=== PATIENT | female | born 1970 | race Hispanic/Latino ===

== ENCOUNTER → 2021-10-20 | Outpatient (CLI) | payer OTHER | END | disposition home or self-care (01) | LOC: RAH 12:01 | PROVIDERS: ATTEND Family Medicine | DX: M54.12 Radiculopathy, cervical region (principal) | CPT/HCPCS: 72040 ==

== ENCOUNTER → 2021-11-16 | Outpatient (CLI) | payer OTHER | END | disposition home or self-care (01) | LOC: ICE 14:20 | PROVIDERS: ATTEND Hospitalist | DX: Z20.822 Contact with and (suspected) exposure to COVID-19 (principal) | CPT/HCPCS: 87635; C9803 ==

== ENCOUNTER → 2022-04-26 | Outpatient (CLI) | payer OTHER ==
[~2022-04-26] MED LIST: REGADENOSON 0.4 MG/5 ML PF SYG IVP SCH
== END | disposition home or self-care (01) ==
LOC: RAH 10:24
PROVIDERS: ATTEND Family Medicine
DX: R06.00 Dyspnea, unspecified (principal); Z73.89 Other problems related to life management difficulty
CPT/HCPCS: 78452; 96374; 93017; J2785; A9500 ×2

== ENCOUNTER → 2022-06-25 | Outpatient (CLI) | payer SELFPAY | END | disposition home or self-care (01) | LOC: RAH 07:37 | PROVIDERS: ATTEND Family Medicine | DX: Z13.6 Encounter for screening for cardiovascular disorders (principal) | CPT/HCPCS: 75571 ==

== ENCOUNTER 2022-08-18 23:45 | Emergency (ER) | payer OTHER ==
[~2022-08-18] VITALS: Ht 147.3 cm; Wt 83.0 kg
[2022-08-19 00:47] LABS: BASOPHILS % (AUTO) 0.3 % (0.0-5.0); EOSINOPHILS % (AUTO) 0.2 % (0.0-8.0); HEMATOCRIT 40.4 % (36-48); LYMPHOCYTES % (AUTO) 11.9 % (21.0-51.0); MEAN CORPUSCULAR HEMOGLOBIN 29.7 pg (27.0-33.0); MEAN CORPUSCULAR HGB CONC 33.4 g/dL (32.0-36.0); MEAN CORPUSCULAR VOLUME 88.8 fL (79-99); MONOCYTES % (AUTO) 10.3 % (3.0-13.0); NEUTROPHILS % (AUTO) 76.7 % (40.0-77.0); PLATELET COUNT (AUTO) 262 K/uL (130-400); RED BLOOD CELL COUNT(AUTO) 4.55 MIL/uL (4.00-5.50); RED CELL DISTRIBUTION WIDTH 11.8 % (11.0-15.5); WHITE BLOOD COUNT (AUTO) 6.2 K/uL (4.8-10.8)
[2022-08-19 00:58] LABS: CREATININE 0.6 mg/dL (0.5-1.5); POTASSIUM 3.9 mmol/L (3.5-5.1)
[2022-08-19] MEDS ORDERED: ONDANSETRON 4MG INJ IVP ONE (01:00)
[2022-08-19] MEDS ORDERED: KETOROLAC 15MG/ML VIAL (15MG/ML) IV ONE (01:00)
[2022-08-19 01:02] LABS: ALBUMIN 3.6 g/dL (3.5-5.0); TOTAL PROTEIN, SERUM 7.2 g/dL (6.0-8.3)
[2022-08-19] MEDS ORDERED: SUCRALFATE 1 GM TABLET PO SCH (02:00)
[2022-08-19] MEDS ORDERED: ACETAMINOPHEN 500 MG TABLET PO ONE (02:00)
[2022-08-19 02:06] LABS: APPEARANCE,URINE CLEAR (CLEAR); BILIRUBIN,URINE NEGATIVE (NEGATIVE); COLOR,URINE LIGHT-YELLOW (YELLOW); GLUCOSE, URINE (UA) NEGATIVE (NEGATIVE); KETONES,URINE 5 mg/dL (NEGATIVE); LEUKOCYTE ESTERASE ,URINE NEGATIVE Leu/uL (NEGATIVE); NITRATE,URINE NEGATIVE (NEGATIVE); OCCULT BLOOD,URINE NEGATIVE (NEGATIVE); PH,URINE 7.5 (5.0-8.0); PROTEIN,URINE 10 mg/dL (NEGATIVE)
[2022-08-19 02:15] LABS: MUCUS,URINE RARE LPF (None Seen); SQUAMOUS EPITHELIAL CELL,UR RARE /HPF (0-2); WBC,URINE 0-1 /HPF (0-1)
[2022-08-19] MEDS ORDERED: ACET-66 PO (02:40)
[2022-08-19] MEDS ORDERED: ONDA4TAB10 PO (02:40)
[2022-08-19 02:55] VITALS: BP 122/71
== END 2022-08-19 02:59 | disposition home or self-care (01) ==
LOC: EDH 23:45
DX: K52.9 Noninfective gastroenteritis and colitis, unspecified (principal); Z88.5 Allergy status to narcotic agent
CPT/HCPCS: 99284; 80053; 83690; 85025; 81001; 36415; 96374; 76705; 96375; J2405; J1885

== ENCOUNTER → 2022-08-24 | Outpatient (CLI) | payer OTHER ==
[~2022-08-24] MED LIST changes: +ACET-66 PO; +ONDA4TAB10 PO; -REGADENOSON 0.4 MG/5 ML PF SYG IVP SCH
[2022-08-24 10:28] LABS: BASOPHILS % (AUTO) 0.8 % (0.0-5.0); EOSINOPHILS % (AUTO) 0.8 % (0.0-8.0); LYMPHOCYTES % (AUTO) 25.5 % (21.0-51.0); MEAN CORPUSCULAR HEMOGLOBIN 29.8 pg (27.0-33.0); MEAN CORPUSCULAR HGB CONC 33.7 g/dL (32.0-36.0); MEAN CORPUSCULAR VOLUME 88.6 fL (79-99); MONOCYTES % (AUTO) 8.4 % (3.0-13.0); NEUTROPHILS % (AUTO) 63.9 % (40.0-77.0); PLATELET COUNT (AUTO) 310 K/uL (130-400); RED BLOOD CELL COUNT(AUTO) 4.63 MIL/uL (4.00-5.50); RED CELL DISTRIBUTION WIDTH 11.9 % (11.0-15.5); WHITE BLOOD COUNT (AUTO) 5.1 K/uL (4.8-10.8)
[2022-08-24 10:57] LABS: ALBUMIN 3.9 g/dL (3.5-5.0); CREATININE 0.7 mg/dL (0.5-1.5); POTASSIUM 3.8 mmol/L (3.5-5.1); THYROID STIMULATING HORMONE 3.34 uIU/mL (0.36-3.74); TOTAL PROTEIN, SERUM 7.6 g/dL (6.0-8.3)
== END | disposition home or self-care (01) ==
LOC: LAB 09:30
PROVIDERS: ATTEND Family Medicine
DX: Z00.00 Encounter for general adult medical examination without abnormal findings (principal); I10 Essential (primary) hypertension; E55.9 Vitamin D deficiency, unspecified; R53.83 Other fatigue; R10.11 Right upper quadrant pain
CPT/HCPCS: 36415; 80053; 80061; 82150; 82306; 82784; 83690; 84443; 85025; 86677

== ENCOUNTER → 2022-09-06 | Outpatient (CLI) | payer OTHER ==
[~2022-09-06] MED LIST changes: +IOHEXOL-350 75 ML VIAL IV ONE
== END | disposition home or self-care (01) ==
LOC: RAH 08:11
PROVIDERS: ATTEND Family Medicine
DX: R10.9 Unspecified abdominal pain (principal); Z90.49 Acquired absence of other specified parts of digestive tract
CPT/HCPCS: 74177; Q9967

== ENCOUNTER 2022-09-08 16:02 | Emergency (ER) | payer OTHER ==
[~2022-09-08] VITALS: Ht 152.4 cm; Wt 83.0 kg
[~2022-09-08 16:02] MED LIST changes: -IOHEXOL-350 75 ML VIAL IV ONE
[2022-09-08] MEDS ORDERED: KETOROLAC 30MG VIAL (30MG/ML) IM ONE (17:00)
[2022-09-08] MEDS ORDERED: IBUP-2070 PO (17:06)
[2022-09-08] MEDS ORDERED: SULF1TAB42 PO (17:06)
[2022-09-08] MEDS ORDERED: CLIN-141 PO (17:06)
[2022-09-08] MEDS ORDERED: TETANUS/DIPHTHERIA TOXOID [ADULT] 0.5 ML VIAL IM ONE (18:00)
== END 2022-09-08 18:42 | disposition home or self-care (01) ==
LOC: EDH 16:02
DX: L03.114 Cellulitis of left upper limb (principal); W57.XXXA Bitten or stung by nonvenomous insect and other nonvenomous arthropods, initial encounter; Y93.89 Activity, other specified; Y92.89 Other specified places as the place of occurrence of the external cause; Y99.8 Other external cause status
CPT/HCPCS: 99284; 90714; 73080; 96372; 90471; J1885

== ENCOUNTER → 2022-09-30 | Outpatient (CLI) | payer OTHER ==
[~2022-09-30] MED LIST changes: +CLIN-141 PO; +IBUP-2070 PO; +SULF1TAB42 PO
== END | disposition home or self-care (01) ==
LOC: RAH 12:41
PROVIDERS: ATTEND Family Medicine
DX: R60.0 Localized edema (principal)
CPT/HCPCS: 93971

== ENCOUNTER → 2022-11-24 | Outpatient (CLI) | payer OTHER ==
[2022-11-24 09:04] LABS: BASOPHILS % (AUTO) 0.5 % (0.0-5.0); EOSINOPHILS % (AUTO) 1.1 % (0.0-8.0); HEMATOCRIT 40.7 % (36-48); LYMPHOCYTES % (AUTO) 22.4 % (21.0-51.0); MEAN CORPUSCULAR HEMOGLOBIN 29.8 pg (27.0-33.0); MEAN CORPUSCULAR HGB CONC 32.9 g/dL (32.0-36.0); MEAN CORPUSCULAR VOLUME 90.6 fL (79-99); MONOCYTES % (AUTO) 10.2 % (3.0-13.0); NEUTROPHILS % (AUTO) 65.5 % (40.0-77.0); PLATELET COUNT (AUTO) 284 K/uL (130-400); RED BLOOD CELL COUNT(AUTO) 4.49 MIL/uL (4.00-5.50); RED CELL DISTRIBUTION WIDTH 11.8 % (11.0-15.5); WHITE BLOOD COUNT (AUTO) 6.5 K/uL (4.8-10.8)
[2022-11-24 09:28] LABS: ALBUMIN 3.7 g/dL (3.5-5.0); CREATININE 0.6 mg/dL (0.5-1.5); POTASSIUM 4.2 mmol/L (3.5-5.1); THYROID STIMULATING HORMONE 3.18 uIU/mL (0.36-3.74); TOTAL PROTEIN, SERUM 7.6 g/dL (6.0-8.3)
== END | disposition home or self-care (01) ==
LOC: LAB 08:04
PROVIDERS: ATTEND Family Medicine
DX: Z00.00 Encounter for general adult medical examination without abnormal findings (principal)
CPT/HCPCS: 36415; 80053; 80061; 84443; 85025

== ENCOUNTER → 2023-05-27 | Outpatient (CLI) | payer OTHER ==
[2023-05-27 08:43] LABS: APPEARANCE,URINE CLEAR (CLEAR); BASOPHILS # (AUTO) 0.03 K/uL (0.00-0.20); BASOPHILS % (AUTO) 0.5 % (0.0-5.0); BILIRUBIN,URINE NEGATIVE (NEGATIVE); COLOR,URINE COLORLESS (YELLOW); EOSINOPHILS # (AUTO) 0.05 K/uL (0.00-0.70); EOSINOPHILS % (AUTO) 0.9 % (0.0-8.0); GLUCOSE, URINE (UA) NEGATIVE (NEGATIVE); HEMATOCRIT 41.6 % (36-48); IMMATURE GRANULOCYTE ABSOLUTE 0.03 K/uL (0-1); KETONES,URINE NEGATIVE (NEGATIVE); LEUKOCYTE ESTERASE ,URINE NEGATIVE Leu/uL (NEGATIVE); LYMPHOCYTES # (AUTO) 1.3 K/uL (1.0-4.8); LYMPHOCYTES % (AUTO) 22.7 % (21.0-51.0); MEAN CORPUSCULAR HEMOGLOBIN 30.2 pg (27.0-33.0); MEAN CORPUSCULAR HGB CONC 32.9 g/dL (32.0-36.0); MEAN CORPUSCULAR VOLUME 91.6 fL (79-99); MONOCYTES # (AUTO) 0.5 K/uL (0.1-1.0); MONOCYTES % (AUTO) 8.5 % (3.0-13.0); NEUTROPHILS # (AUTO) 3.7 K/uL (1.8-7.7); NEUTROPHILS % (AUTO) 66.9 % (40.0-77.0); NITRATE,URINE NEGATIVE (NEGATIVE); PLATELET COUNT (AUTO) 283 K/uL (130-400); PROTEIN,URINE NEGATIVE (NEGATIVE); RED BLOOD CELL COUNT(AUTO) 4.54 MIL/uL (4.00-5.50); UROBILINOGEN,URINE 0.2 mg/dL (0.2-1.0); WHITE BLOOD COUNT (AUTO) 5.6 K/uL (4.8-10.8)
[2023-05-27 08:50] LABS: ADD UA MICROSCOPIC YES
[2023-05-27 08:51] LABS: SQUAMOUS EPITHELIAL CELL,UR RARE /HPF (0-2); WBC,URINE 0-1 /HPF (0-1)
[2023-05-27 08:54] LABS: HEMOGLOBIN A1C 5.6 % (4.0-6.0)
== END | disposition home or self-care (01) ==
LOC: RAH 07:25
PROVIDERS: ATTEND Obstetrics & Gynecology
DX: N92.1 Excessive and frequent menstruation with irregular cycle (principal); N94.6 Dysmenorrhea, unspecified
CPT/HCPCS: 36415; 76856; 81001; 83001; 83002; 83036; 84144; 84402; 84403; 84443; 85025

== ENCOUNTER → 2023-09-05 | Outpatient (CLI) | payer OTHER ==
[2023-09-05 09:37] LABS: BASOPHILS # (AUTO) 0.02 K/uL (0.00-0.20); BASOPHILS % (AUTO) 0.3 % (0.0-5.0); EOSINOPHILS # (AUTO) 0.06 K/uL (0.00-0.70); HEMATOCRIT 40.6 % (36-48); IMMATURE GRANULOCYTE ABSOLUTE 0.02 K/uL (0-1); LYMPHOCYTES # (AUTO) 1.5 K/uL (1.0-4.8); LYMPHOCYTES % (AUTO) 25.3 % (21.0-51.0); MEAN CORPUSCULAR HEMOGLOBIN 30.2 pg (27.0-33.0); MEAN CORPUSCULAR HGB CONC 33.7 g/dL (32.0-36.0); MEAN CORPUSCULAR VOLUME 89.6 fL (79-99); MONOCYTES # (AUTO) 0.6 K/uL (0.1-1.0); MONOCYTES % (AUTO) 10.6 % (3.0-13.0); NEUTROPHILS # (AUTO) 3.6 K/uL (1.8-7.7); NEUTROPHILS % (AUTO) 62.5 % (40.0-77.0); PLATELET COUNT (AUTO) 282 K/uL (130-400); RED BLOOD CELL COUNT(AUTO) 4.53 MIL/uL (4.00-5.50); RED CELL DISTRIBUTION WIDTH 11.7 % (11.0-15.5); WHITE BLOOD COUNT (AUTO) 5.7 K/uL (4.8-10.8)
[2023-09-05 10:01] LABS: BILIRUBIN,TOTAL 0.4 mg/dL (0.2-1.0); CREATININE 0.6 mg/dL (0.5-1.0); POTASSIUM 4.4 mmol/L (3.5-5.1); THYROID STIMULATING HORMONE 3.43 uIU/mL (0.36-3.74); TOTAL PROTEIN, SERUM 7.8 g/dL (6.0-8.3)
== END | disposition home or self-care (01) ==
LOC: LAB 08:52
PROVIDERS: ATTEND Family Medicine
DX: Z00.00 Encounter for general adult medical examination without abnormal findings (principal); E55.9 Vitamin D deficiency, unspecified; I10 Essential (primary) hypertension
CPT/HCPCS: 36415; 80053; 80061; 84443; 85025

== ENCOUNTER 2023-09-29 05:39 | Day surgery (SDC) | payer OTHER ==
[2023-09-27 08:32] LABS: BASOPHILS # (AUTO) 0.02 K/uL (0.00-0.20); BASOPHILS % (AUTO) 0.3 % (0.0-5.0); EOSINOPHILS # (AUTO) 0.06 K/uL (0.00-0.70); IMMATURE GRANULOCYTE ABSOLUTE 0.02 K/uL (0-1); LYMPHOCYTES # (AUTO) 1.2 K/uL (1.0-4.8); LYMPHOCYTES % (AUTO) 19.8 % (21.0-51.0); MEAN CORPUSCULAR HEMOGLOBIN 30.3 pg (27.0-33.0); MEAN CORPUSCULAR HGB CONC 34.2 g/dL (32.0-36.0); MEAN CORPUSCULAR VOLUME 88.6 fL (79-99); MONOCYTES # (AUTO) 0.5 K/uL (0.1-1.0); MONOCYTES % (AUTO) 8.5 % (3.0-13.0); NEUTROPHILS # (AUTO) 4.4 K/uL (1.8-7.7); NEUTROPHILS % (AUTO) 70.1 % (40.0-77.0); PLATELET COUNT (AUTO) 272 K/uL (130-400); RED BLOOD CELL COUNT(AUTO) 4.29 MIL/uL (4.00-5.50); RED CELL DISTRIBUTION WIDTH 11.8 % (11.0-15.5); WHITE BLOOD COUNT (AUTO) 6.2 K/uL (4.8-10.8)
[2023-09-27 08:42] VITALS: BP 144/94; PULSE 88; RESP 19
[~2023-09-29] VITALS: Ht 149.9 cm; Wt 82.6 kg
[2023-09-29] VITALS (16 sets, daily range): BP systolic 120–146; BP diastolic 66–77; PULSE 85–100; RESP 15–19
[~2023-09-29 05:39] MED LIST changes: -ACET-66 PO; -CLIN-141 PO; +DIPH50LI PO; +FLUT15.845 NS; -IBUP-2070 PO; +IBUP-2077 PO; +MELA1TAB73 PO; +OMEP40CA21 PO; -ONDA4TAB10 PO; -SULF1TAB42 PO
[2023-09-29] MEDS: LACTATED RINGERS 1000ML 1,000 ML IV ONE (06:56)
[2023-09-29] MEDS: CEFAZOLIN SODIUM 2 GM VIAL ONE (06:56)
[2023-09-29] MEDS ORDERED: MIDAZOLAM HCL 1 MG/ML 2ML VIAL ONE (07:22)
[2023-09-29] MEDS ORDERED: ROCURONIUM BROMIDE 10MG/1ML 5ML VL ONE (07:22)
[2023-09-29] MEDS ORDERED: PROPOFOL 10 MG/ML 20ML VIAL IV ONE (07:22)
[2023-09-29] MEDS ORDERED: SUCCINYLCHOLINE CHLORIDE 20 MG/ML 10 ML VIAL ONE (07:22)
[2023-09-29] MEDS ORDERED: FENTANYL CITRATE PF 50 MCG/1 ML 2ML VIAL ONE (07:30)
[2023-09-29] MEDS ORDERED: EPHEDRINE SULFATE 50 MG/ML AMPULE ONE (07:49)
== END 2023-09-29 09:50 | disposition home or self-care (01) ==
LOC: DAH 05:39
PROVIDERS: ATTEND Obstetrics & Gynecology
DX: N92.1 Excessive and frequent menstruation with irregular cycle (principal); N88.8 Other specified noninflammatory disorders of cervix uteri; N94.6 Dysmenorrhea, unspecified; E66.9 Obesity, unspecified; Z68.36 Body mass index [BMI] 36.0-36.9, adult; Z88.0 Allergy status to penicillin; Z88.8 Allergy status to other drugs, medicaments and biological substances; Z88.6 Allergy status to analgesic agent; Z79.1 Long term (current) use of non-steroidal anti-inflammatories (NSAID); Z72.89 Other problems related to lifestyle; Z82.49 Family history of ischemic heart disease and other diseases of the circulatory system; Z83.3 Family history of diabetes mellitus; Z90.49 Acquired absence of other specified parts of digestive tract; Z98.891 History of uterine scar from previous surgery; Z98.890 Other specified postprocedural states
CPT/HCPCS: 84703; 85025; 86850; 86900; 86901; 36415; 58558; 88305; A6260; A4663; J7030; A4351; A4355; J7120; J3010; J3490; J2250; J2704; J0690; A4215; A4223; A4222; A4221; A4600; J0330

== ENCOUNTER → 2023-10-11 | Outpatient (CLI) | payer OTHER | END | disposition home or self-care (01) | LOC: RAH 08:14 | PROVIDERS: ATTEND Obstetrics & Gynecology | DX: Z12.31 Encounter for screening mammogram for malignant neoplasm of breast (principal); R92.323 Mammographic fibroglandular density, bilateral breasts | CPT/HCPCS: 77067 ==

== ENCOUNTER → 2023-12-29 | Outpatient (CLI) | payer OTHER ==
[2023-12-29 08:42] LABS: BASOPHILS # (AUTO) 0.02 K/uL (0.00-0.20); BASOPHILS % (AUTO) 0.3 % (0.0-5.0); EOSINOPHILS # (AUTO) 0.07 K/uL (0.00-0.70); HEMATOCRIT 39.3 % (36-48); IMMATURE GRANULOCYTE ABSOLUTE 0.03 K/uL (0-1); LYMPHOCYTES # (AUTO) 1.5 K/uL (1.0-4.8); LYMPHOCYTES % (AUTO) 20.9 % (21.0-51.0); MEAN CORPUSCULAR HEMOGLOBIN 30.4 pg (27.0-33.0); MEAN CORPUSCULAR HGB CONC 33.8 g/dL (32.0-36.0); MEAN CORPUSCULAR VOLUME 89.7 fL (79-99); MONOCYTES # (AUTO) 0.7 K/uL (0.1-1.0); MONOCYTES % (AUTO) 9.4 % (3.0-13.0); NEUTROPHILS # (AUTO) 4.8 K/uL (1.8-7.7); PLATELET COUNT (AUTO) 265 K/uL (130-400); RED BLOOD CELL COUNT(AUTO) 4.38 MIL/uL (4.00-5.50); RED CELL DISTRIBUTION WIDTH 11.9 % (11.0-15.5)
[2023-12-29 09:13] LABS: ALBUMIN 3.6 g/dL (3.5-5.0); BILIRUBIN,TOTAL 0.5 mg/dL (0.2-1.0); CREATININE 0.6 mg/dL (0.5-1.0); POTASSIUM 4.3 mmol/L (3.5-5.1); THYROID STIMULATING HORMONE 3.65 uIU/mL (0.36-3.74); TOTAL PROTEIN, SERUM 7.2 g/dL (6.0-8.3)
== END | disposition home or self-care (01) ==
LOC: LAB 07:58
PROVIDERS: ATTEND Family Medicine
DX: I10 Essential (primary) hypertension (principal); E55.9 Vitamin D deficiency, unspecified; Z00.00 Encounter for general adult medical examination without abnormal findings
CPT/HCPCS: 36415; 80053; 80061; 84443; 85025

== ENCOUNTER → 2024-01-03 | Outpatient (CLI) | payer OTHER | END | disposition home or self-care (01) | LOC: RAH 12:48 | PROVIDERS: ATTEND Obstetrics & Gynecology | DX: R92.331 Mammographic heterogeneous density, right breast (principal); N64.89 Other specified disorders of breast; N63.12 Unspecified lump in the right breast, upper inner quadrant | CPT/HCPCS: 76641; 77065 ==

== ENCOUNTER → 2024-04-17 | Outpatient (CLI) | payer OTHER ==
[2024-04-17 07:59] LABS: BASOPHILS # (AUTO) 0.02 K/uL (0.00-0.20); BASOPHILS % (AUTO) 0.3 % (0.0-5.0); EOSINOPHILS # (AUTO) 0.06 K/uL (0.00-0.70); EOSINOPHILS % (AUTO) 0.9 % (0.0-8.0); HEMATOCRIT 39.9 % (36-48); IMMATURE GRANULOCYTE ABSOLUTE 0.01 K/uL (0-1); LYMPHOCYTES # (AUTO) 1.4 K/uL (1.0-4.8); LYMPHOCYTES % (AUTO) 22.2 % (21.0-51.0); MEAN CORPUSCULAR HEMOGLOBIN 30.9 pg (27.0-33.0); MEAN CORPUSCULAR HGB CONC 33.6 g/dL (32.0-36.0); MEAN CORPUSCULAR VOLUME 92.1 fL (79-99); MONOCYTES # (AUTO) 0.6 K/uL (0.1-1.0); MONOCYTES % (AUTO) 9.3 % (3.0-13.0); NEUTROPHILS # (AUTO) 4.4 K/uL (1.8-7.7); NEUTROPHILS % (AUTO) 67.1 % (40.0-77.0); PLATELET COUNT (AUTO) 280 K/uL (130-400); RED BLOOD CELL COUNT(AUTO) 4.33 MIL/uL (4.00-5.50); RED CELL DISTRIBUTION WIDTH 11.7 % (11.0-15.5); WHITE BLOOD COUNT (AUTO) 6.5 K/uL (4.8-10.8)
[2024-04-17 08:15] LABS: APPEARANCE,URINE CLEAR (CLEAR); BILIRUBIN,URINE NEGATIVE (NEGATIVE); COLOR,URINE LIGHT-YELLOW (YELLOW); GLUCOSE, URINE (UA) NEGATIVE (NEGATIVE); KETONES,URINE NEGATIVE (NEGATIVE); LEUKOCYTE ESTERASE ,URINE 75 Leu/uL (NEGATIVE); NITRATE,URINE NEGATIVE (NEGATIVE); PH,URINE 5.5 (5.0-8.0); PROTEIN,URINE NEGATIVE (NEGATIVE); UROBILINOGEN,URINE 0.2 mg/dL (0.2-1.0)
[2024-04-17 08:28] LABS: ADD UA MICROSCOPIC YES
[2024-04-17 08:30] LABS: MUCUS,URINE RARE LPF (None Seen); SQUAMOUS EPITHELIAL CELL,UR FEW /HPF (0-2)
[2024-04-17 08:31] LABS: ALBUMIN 3.9 g/dL (3.5-5.0); BILIRUBIN,TOTAL 0.4 mg/dL (0.2-1.0); CREATININE 0.7 mg/dL (0.5-1.0); POTASSIUM 4.4 mmol/L (3.5-5.1); THYROID STIMULATING HORMONE 4.79 uIU/mL (0.36-3.74); TOTAL PROTEIN, SERUM 7.5 g/dL (6.0-8.3)
== END | disposition home or self-care (01) ==
LOC: LAB 07:17
PROVIDERS: ATTEND Family Medicine
DX: G56.03 Carpal tunnel syndrome, bilateral upper limbs (principal); E55.9 Vitamin D deficiency, unspecified; I10 Essential (primary) hypertension; K21.9 Gastro-esophageal reflux disease without esophagitis; M54.2 Cervicalgia
CPT/HCPCS: 36415; 80053; 80061; 81001; 82043; 82306; 82570; 84443; 85025; 87086

== ENCOUNTER → 2024-06-14 | Outpatient (CLI) | payer OTHER ==
--- NOTE | 2024-06-14 11:09 | HMCIMG ---
US ABDOMINAL COMPLETE HISTORY: Right upper abdominal pain COMPARISON: 08/19/2022 TECHNIQUE: Multiple transverse and longitudinal ultrasound images of the abdomen were obtained. Additional images of right lower abdomen were obtained. FINDINGS: Abdominal aorta and inferior vena cava are unremarkable. The visualized portion of the pancreas is within normal limits. Liver measured 13.3 cm. Liver is echogenic consistent with liver parenchymal disease. Gallbladder has been removed. Common duct measures 6 mm. Both kidneys are seen. Right kidney measures 10.7 x 4.3 x 5cm. Left kidney measures 11.2 x 4.7 x 4.6 cm. No hydronephrosis is seen of the both kidneys. The spleen is grossly unremarkable. Additional images of right lower abdomen show no evidence of mass lesion. IMPRESSION: 1. Post cholecystectomy changes. No ductal dilatation is seen. 2. No hydronephrosis is seen.
--- NOTE | 2024-06-14 11:56 | HMCIMG ---
CHEST 2VWS HISTORY: Shortness of breath COMPARISON: None FINDINGS: Frontal and lateral projections of the chest were obtained. There is no acute pulmonary infiltrates or failure. The heart is not enlarged. Prominent interstitial markings are seen. IMPRESSION: 1. No acute pulmonary infiltrates.
== END | disposition home or self-care (01) ==
LOC: RAH 07:41
PROVIDERS: ATTEND Nurse Practitioner Adult Health
DX: R10.11 Right upper quadrant pain (principal); R06.02 Shortness of breath; Z90.49 Acquired absence of other specified parts of digestive tract
CPT/HCPCS: 71046; 76700

== ENCOUNTER → 2024-06-28 | Outpatient (CLI) | payer OTHER ==
[~2024-06-28] MED LIST changes: +KETO10TA2 PO
--- NOTE | 2024-07-01 11:31 | HMCSR ---
APPROVED REPORT EXAM: Two-dimensional and M-mode echocardiogram with Doppler and color Doppler. INDICATION ICD: R00.2 Palpitations 2D Dimensions RVDd3.8 cmLVEF(%)64.8 (>50%)LVED Vol(simp.)84.0 mL IVSd0.9 (0.7-1.1cm)FS(%)35 %LVES Vol(simp.)32.0 mL LVDd4.1 (3.8-5.6cm)Ao Root(2D)3.1 (2.0-3.7cm)LVEF(%, simp.)62 % PWd0.9 (0.7-1.1cm)LVOT diam2.1 (1.8-2.4cm)LA ESV INDEX (BP)30.96 mL/m2 LVDs2.6 (2.5-4.0cm)IVC diam1.6 cm Aortic Valve AoV Vmax1.2 m/Ajay Peak GR6.2 mmHgLVOT Vmax1.1 m/s AoV VTI0.3 mAo Mean GR3.8 mmHgLVOT VTI0.23 m BRADEN (VMAX)2.7 cm2AVA (VTI) 2.7 cm2 Mitral Valve MV E Vmax64.7 cm/sDECEL Myut590 ms MV A Vmax73.2 cm/sP 1/2 T74 ms E/A ratio0.9MVA (PHT)3.0 cm2 MR Max PG84 mmHg TDI E/E' Medial8.5E/E' Lateral7.4 Pulmonary Valve PV Vmax0.9 m/sPV VTI0.19 mPV Mean GR2 mmHg PV Peak GR3.1 mmHg Tricuspid Valve TR Vmax2.5 m/sRAP (EST) 3 llKuHUPA67.7 mmHg TR Peak GR25.7 mmHg Left Ventricle The left ventricle structure and function is normal. There is normal LV segmental wall motion. There is normal left ventricular wall thickness. LVEF is 60-65%. Left ventricular filling pattern is normal for age. Right Ventricle The right ventricle is normal size. The right ventricular systolic function is normal. Atria The left atrium size is normal. The right atrium size is normal. Aortic Valve The aortic valve opens well. Trace aortic regurgitation. There is no aortic valvular stenosis. Mitral Valve Mitral valve leaflets are mildly sclerotic but open well. Mitral regurgitation is trace to mild. Ther e is no mitral valve stenosis. Tricuspid Valve The tricuspid valve leaflets appear normal. There is mild tricuspid regurgitation. Pulmonic Valve Pulmonic valve is not well visualized. There is trace pulmonic valvular regurgitation. Great Vessels The aortic root is normal in size. The IVC is normal in size and collapses >50% with inspiration. Pericardium No pericardial effusion. Conclusion LVEF is 60-65%. There is normal LV segmental wall motion. Mitral regurgitation is trace to mild. The aortic root is normal in size. No pericardial effusion.
== END | disposition home or self-care (01) ==
LOC: SHCH 13:31
PROVIDERS: ATTEND Internal Medicine Cardiovascular Disease
DX: I08.1 Rheumatic disorders of both mitral and tricuspid valves (principal); R00.2 Palpitations
CPT/HCPCS: 93306

== ENCOUNTER → 2024-06-29 | Outpatient (CLI) | payer OTHER ==
--- NOTE | 2024-06-29 12:02 | HMCIMG ---
MRI OF THE SHOULDER WITHOUT GADOLINIUM, left Clinical Information: Pain Comparison: None Technique: The examination is done with sagittal T1 and inversion recovery sequences, axial GRE sequence and coronal inversion recovery, proton density and T2 weighted [id number] sequences. FINDINGS: There is a partial-thickness tear of the rotator cuff tendon supraspinatus component without retraction. The rest of the rotator cuff tendon structures are preserved. The acromioclavicular joint is hypertrophic. This may cause impingement of the rotator cuff tendon. The coracoclavicular and coracohumeral ligaments are intact. The biceps anchor is well seen, without significant tears. The biceps tendon runs in the bicipital groove without significant high signal intensity to suggest sprain. No displacement is seen from the groove itself. The structures of the labrum are intact; specifically, there is no evidence of SLAP tear. No significant abnormalities of the posterior, inferior, or inferior labral structures are seen either. No paralabral cysts are seen. The superior, middle, and inferior glenohumeral ligaments are intact. Glenohumeral joint cartilage is preserved. There is no evidence of chondromalacia. No loose intra-articular chondroid bodies are identified. The osseous structures of the shoulder joint to include the visualized segments of humeral head, neck, and shaft as well as the glenoid bone itself, the acromion, the coracoid, portions of the scapula and the distal portion of the clavicle are intact. The supraglenoid notch is clear without evidence of space occupying lesions or tumor. The structures of the joint capsule are preserved. The limited examination of the deltoid and the limited visualized portions of the pectoralis major are intact. IMPRESSION: 1. HYPERTROPHIC ACROMIOCLAVICULAR JOINT, WHICH MAY CAUSE IMPINGEMENT OF THE ROTATOR CUFF TENDON. 2. PARTIAL ROTATOR CUFF TENDON TEAR.
== END | disposition home or self-care (01) ==
LOC: RAH 08:21
PROVIDERS: ATTEND Nurse Practitioner Adult Health
DX: S46.012A Strain of muscle(s) and tendon(s) of the rotator cuff of left shoulder, initial encounter (principal); X58.XXXA Exposure to other specified factors, initial encounter; Y93.89 Activity, other specified; Y92.89 Other specified places as the place of occurrence of the external cause; Y99.8 Other external cause status; M25.512 Pain in left shoulder
CPT/HCPCS: 73221

== ENCOUNTER → 2024-09-11 | Outpatient (CLI) | payer OTHER ==
[2024-09-11 08:18] LABS: BASOPHILS # (AUTO) 0.02 K/uL (0.00-0.20); BASOPHILS % (AUTO) 0.3 % (0.0-5.0); EOSINOPHILS # (AUTO) 0.08 K/uL (0.00-0.70); EOSINOPHILS % (AUTO) 1.4 % (0.0-8.0); HEMATOCRIT 38.8 % (36-48); IMMATURE GRANULOCYTE ABSOLUTE 0.02 K/uL (0-1); LYMPHOCYTES # (AUTO) 1.4 K/uL (1.0-4.8); LYMPHOCYTES % (AUTO) 24.6 % (21.0-51.0); MEAN CORPUSCULAR HEMOGLOBIN 29.6 pg (27.0-33.0); MEAN CORPUSCULAR HGB CONC 32.7 g/dL (32.0-36.0); MEAN CORPUSCULAR VOLUME 90.4 fL (79-99); MONOCYTES # (AUTO) 0.6 K/uL (0.1-1.0); MONOCYTES % (AUTO) 9.9 % (3.0-13.0); NEUTROPHILS # (AUTO) 3.7 K/uL (1.8-7.7); NEUTROPHILS % (AUTO) 63.5 % (40.0-77.0); PLATELET COUNT (AUTO) 251 K/uL (130-400); RED BLOOD CELL COUNT(AUTO) 4.29 MIL/uL (4.00-5.50); RED CELL DISTRIBUTION WIDTH 12.6 % (11.0-15.5); WHITE BLOOD COUNT (AUTO) 5.9 K/uL (4.8-10.8)
[2024-09-11 08:42] LABS: ALBUMIN 3.8 g/dL (3.5-5.0); BILIRUBIN,TOTAL 0.5 mg/dL (0.2-1.0); CREATININE 0.7 mg/dL (0.5-1.0); POTASSIUM 4.6 mmol/L (3.5-5.1); THYROID STIMULATING HORMONE 2.61 uIU/mL (0.36-3.74); TOTAL PROTEIN, SERUM 7.3 g/dL (6.0-8.3)
== END | disposition home or self-care (01) ==
LOC: LAB 07:42
PROVIDERS: ATTEND Family Medicine
DX: I10 Essential (primary) hypertension (principal); K21.9 Gastro-esophageal reflux disease without esophagitis; N92.0 Excessive and frequent menstruation with regular cycle; Z00.00 Encounter for general adult medical examination without abnormal findings
CPT/HCPCS: 36415; 80053; 80061; 84443; 85025

== ENCOUNTER 2025-01-22 16:28 | Emergency (ER) | payer OTHER ==
[~2025-01-22] VITALS: Ht 149.9 cm; Wt 81.6 kg
[~2025-01-22 16:28] MED LIST changes: +CYCL10TA16 PO
[2025-01-22 16:44] VITALS: BP 152/75; PULSE 80; RESP 16; TEMP 98.7; O2SAT 98
[2025-01-22 17:13] LABS: IMMATURE GRANULOCYTE ABSOLUTE 0.03 K/uL (0-1); NUCLEATED RED BLOOD CELLS 0.0 % (0.0-0.19); PLATELET COUNT (AUTO) 250 K/uL (130-400); RED BLOOD CELL COUNT(AUTO) 4.12 MIL/uL (4.00-5.50); RED CELL DISTRIBUTION WIDTH 11.9 % (11.0-15.5); WHITE BLOOD COUNT (AUTO) 7.3 K/uL (4.8-10.8)
[2025-01-22 17:28] LABS: CREATININE 0.6 mg/dL (0.5-1.0); GLOMERULAR FILTR. RATE CALC 106.0 mL/min (>90); GLUCOSE,RANDOM 97.0 mg/dL (70-105); SODIUM SERUM 140.0 mmol/L (136-145); UREA NITROGEN, BLOOD 17.0 mg/dL (7-18)
[2025-01-22] MEDS ORDERED: MAG/ALUM/SIMETH 30 ML UDCUP PO ONE (18:00)
[2025-01-22] MEDS ORDERED: LIDOCAINE HCL 2% VISCOUS 15 ML UDCUP PO ONE (18:00)
[2025-01-22] MEDS ORDERED: DICYCLOMINE HCL 10 MG/5 ML ML PO ONE (18:00)
[2025-01-22] MEDS ORDERED: 0.9%NACL 1000ML 1,000 ML IV ONE (18:00)
[2025-01-22 18:04] LABS: ASPARTATE AMINOTRANSFERASE 19.0 U/L (10-37); TOTAL PROTEIN, SERUM 7.2 g/dL (6.0-8.3)
--- NOTE | 2025-01-22 18:12 | HMCIMG ---
EXAM: CR Chest, 1 View. CLINICAL HISTORY: CHEST PAIN COMPARISON: None provided. FINDINGS: LUNGS: There is no mass, infiltrate, or acute pulmonary abnormality. PLEURAL SPACES: No pleural effusion or pneumothorax. MEDIASTINUM: The cardiomediastinal silhouette is within normal limits. BONES: No aggressive appearing osseous lesion seen. IMPRESSION: No acute cardiopulmonary pathology is evident. /[place]
--- NOTE | 2025-01-23 00:17 | ERN ---
ED Note History of Present Illness Stated Complaint: CP Chief Complaint: Chest Pain Time Seen by MD: 17:10 Time Seen by Midlevel: 17:10 Dictation: The patient is a 54-year-old female with a history of gastritis, , cholecystectomy who presents to the emergency department with complaints of epigastric abdominal pain and chest pain onset today around 1:30 p.m.. Patient reports burning sensation. In his associated with nausea nonbloody vomiting. Denies any fevers. Denies any upper respiratory symptoms. Allergies: Coded Allergies: No Known Drug Allergies (Verified Allergy, Unknown, 04/26/22) Penicillins (Unverified Allergy, Unknown, 01/22/25) morphine (Unverified Allergy, Unknown, 08/19/22) pork derived (porcine) (Unverified Allergy, Unknown, 09/27/23) Home Meds Active Scripts Cyclobenzaprine HCl (Flexeril) 10 Mg Tab, 10 MG PO TID for muscle sstiffness, #30 TAB 0 Refills Prov:VERÓNICA SUH SALES VICE PRESIDENT 10/17/24 Ketorolac Tromethamine (Ketorolac Tromethamine) 10 Mg Tablet, 10 MG PO BID for 5 Days, #10 TAB Prov:DORIAN RENDON PA 06/26/24 Reported Medications Diphenhydramine HCl (Zzzquil) 50 Mg/30 Ml Liquid, 5 ML PO HS 09/28/23 Omeprazole (Omeprazole) 40 Mg Capsule.dr, 40 MG PO AM, CAP 09/27/23 Fluticasone Propionate (Fluticasone Propionate) 50 Mcg/Actuation [place].susp, 1 SPRAY NS AM 09/27/23 Ibuprofen (Ibuprofen 800 mg Tab) 800 Mg Tab, 800 MG PO Q8H PRN for PAIN, TAB 09/27/23 Melatonin/Pyridoxine HCl (B6) (Melatonin 10 mg Tablet) 10 Mg-10 Mg Tab.mphase, 1 EACH PO HS 09/27/23 Past Medical History Past Medical History: No Pertinent History Surgical History: None Social History: Negative, Lives with family History: Not Applicable RN Note Reviewed/Agreed w/PFSH: Yes Review of System Dictation Constitutional: Negative for fever,chills, and weight loss Eyes: Negative for injury, pain,redness, and discharge ENT: Negative for injury,pain or swelling Cardiovascular: Negative for palpitations, and edema positive for chest pain Respiratory: Negative for shortness of breath, cough, and wheezing, Abdomen/GI: Negative for diarrhea, and constipation positive for abdominal pain, nausea, vomiting Back: Negative for injury and pain : Negative for injury, bleeding and discharge MS/Extremity: Negative for injury and deformity Skin: Negative for rash, and discoloration Neuro: Negative for headache, weakness, numbness, tingling, and seizure Psych: Negative for suicide ideation, homicidal ideation, and hallucinations Initial Vital Sign VS Vital Signs Date Time Temp Pulse Resp B/P (MAP) Pulse Ox O2 Delivery O2 Flow Rate FiO2 01/22/25 16:30 98.8 70 16 152/75 98 Room Air 0 01/22/25 16:44 21 Physical Exam Dictation Vital Signs reviewed General Appearance: Alert, oriented x 3, no acute distress, well developed, nourished. Head and Face: non-traumatic. Eyes: PERRL, pink conjunctivas, eyelid no trauma, anterior chamber with arcus senilis. Ears: Pinnas intact and no signs of trauma or erythema ear canals clear and no discharge TM no erythema Nose: No discharge, no bleeding. Oropharynx: Mouth normal, tongue pink. pharynx clear,no erythema, tonsils no exudates, no abscesses noted, mucous membrane moist Neck: Supple, non-tender, no thyromegaly, no masses, no JVD, no bruits Breast:Deferred Chest:No tenderness, no crepitus, no paradoxical movement, no retractions Lungs:Clear, well-ventilated, symmetric, no rales, no wheezing, no rhonchi, no stridor, good breath sounds bilaterally Heart: Regular rate, regular rhythm, no murmur, no gallops Vascular: no peripheral edema, Abdomen: Soft, positive bowel sounds, nondistended, no guarding, nontender, no rebound, no masses no hepatomegaly, no splenomegaly, no Carrion's sign, no hernias. Rectal: Deferred Genital: Deferred Neurological: Normal speech, motor function intact, sensory function intact Musculoskeletal: Neck nontender, full range of motion, back nontender, full range of motion, Extremities: nontender, full range of motion Skin: Color pink, dry, no turgor, no rash, no lacerations, no abrasions, no contusions. Lymphatic: Deferred Results (Laboratory/Radiology) Laboratory/Radiology Laboratory Tests Test 01/22/25 16:47 White Blood Count 7.3 K/uL (4.8-10.8) Red Blood Count 4.12 MIL/uL (4.00-5.50) Hemoglobin 12.5 g/dL (12.0-16.0) Hematocrit 37.8 % (36-48) Mean Corpuscular Volume 91.7 fL (79-99) Mean Corpuscular Hemoglobin 30.3 pg (27.0-33.0) Mean Corpuscular Hemoglobin Concent 33.1 g/dL (32.0-36.0) Red Cell Distribution Width 11.9 % (11.0-15.5) Platelet Count 250 K/uL (130-400) Mean Platelet Volume 10.3 fL (7.5-10.5) Immature Granulocyte % (Auto) 0.4 % (0-1) Neutrophils (%) (Auto) 69.3 % (40.0-77.0) Lymphocytes (%) (Auto) 20.4 % (21.0-51.0) L Monocytes (%) (Auto) 8.6 % (3.0-13.0) Eosinophils (%) (Auto) 1.0 % (0.0-8.0) Basophils (%) (Auto) 0.3 % (0.0-5.0) Neutrophils # (Auto) 5.1 K/uL (1.8-7.7) Lymphocytes # (Auto) 1.5 K/uL (1.0-4.8) Monocytes # (Auto) 0.6 K/uL (0.1-1.0) Eosinophils # (Auto) 0.07 K/uL (0.00-0.70) Basophils # (Auto) 0.02 K/uL (0.00-0.20) Absolute Immature Granulocyte (auto 0.03 K/uL (0-1) Nucleated Red Blood Cells 0.0 % (0.0-0.19) Sodium Level 140 mmol/L (136-145) Potassium Level 4.1 mmol/L (3.5-5.1) Chloride Level 103 mmol/L (101-111) Carbon Dioxide Level 32 mmol/L (21-32) Blood Urea Nitrogen 17 mg/dL (7-18) Creatinine 0.6 mg/dL (0.5-1.0) Glomerular Filtration Rate Calc 106 mL/min (>90) Random Glucose 97 mg/dL (70-105) Total Calcium 8.5 mg/dL (8.5-10.1) Total Bilirubin 0.3 mg/dL (0.2-1.0) Direct Bilirubin 0.1 mg/dL (0.0-0.3) Aspartate Amino Transf (AST/SGOT) 19 U/L (10-37) Alanine Aminotransferase (ALT/SGPT) 30 U/L (12-78) Alkaline Phosphatase 87 U/L (50-136) Troponin I High Sensitivity 14 ng/L (4-50) B-Type Natriuretic Peptide 24 pg/mL (0-100) Total Protein 7.2 g/dL (6.0-8.3) Albumin 3.8 g/dL (3.5-5.0) Lipase 31 U/L (16-77) REASON: CHEST PAIN ORDERING PHYSICIAN: BIB KAPOOR MD PROCEDURE: CXR1VW - CHEST 1VW EXAM: CR Chest, 1 View. CLINICAL HISTORY: CHEST PAIN COMPARISON: None provided. FINDINGS: LUNGS: There is no mass, infiltrate, or acute pulmonary abnormality. PLEURAL SPACES: No pleural effusion or pneumothorax. MEDIASTINUM: The cardiomediastinal silhouette is within normal limits. BONES: No aggressive appearing osseous lesion seen. IMPRESSION: No acute cardiopulmonary pathology is evident. /[place] Labs Reviewed?: Yes EKG: (+) rhythm (Sinus rhythm) EKG Comment: Date:01/22/2025 Time:1631 Ventricular rate:80 [place] interval:148 QRS duration:82 QT/QTc:649575 EKG interpretation: Sinus rhythm Reviewed by ED Attending no STEMI ED Course ED Course Orders Procedure Category Date Status Time Cbc With Differential LAB 01/22/25 Complete 16:32 Basic Metabolic Panel LAB 01/22/25 Complete 16:32 12 Lead Ekg Tracing- EKG 01/22/25 Logged Technical 16:32 Troponin I High LAB 01/22/25 Complete Sensitivity 16:32 B-Type Natriuretic LAB 01/22/25 Complete Peptide 16:32 Chest 1vw RAD 01/22/25 Resulted 16:32 Lipase LAB 01/22/25 Complete 17:43 Hepatic Function Panel LAB 01/22/25 Complete 17:43 0.9%Nacl 1000ml (Ns PHA 01/22/25 Complete 1000ml) 18:00 Ondansetron 4mg Inj PHA 01/22/25 Complete (Zofran 4mg Inj) 18:00 Lidocaine Hcl 2% PHA 01/22/25 Complete Viscous (Lidocaine Hcl 18:00 Mag/Alum/Simeth 30ml PHA 01/22/25 Complete (Maalox Plus 30ml) 18:00 Pantoprazole 40mg Inj PHA 01/22/25 Complete (Protonix 40mg Inj 18:00 Dicyclomine Hcl PHA 01/22/25 Complete (Bentyl 10mg/5ml 18:00 Current Medications Medications (Trade) Dose Ordered Sig/Keyonna Route PRN Reason Start Time Stop Time Status Last Admin Dose Admin Al Hydroxide/Mg Hydroxide (MAALox PLUS 30ML) 30 ml ONCE ONCE PO 01/22/25 18:00 01/22/25 18:01 DC Dicyclomine HCl (Bentyl 10mg/5ml Syrup) 10 mg ONCE ONCE PO 01/22/25 18:00 01/22/25 18:01 DC Lidocaine HCl (Lidocaine HCl 2% Viscous) 10 ml ONCE ONCE PO 01/22/25 18:00 01/22/25 18:01 DC Ondansetron HCl (zoFRAN 4MG INJ) 4 mg ONCE ONCE IVP 01/22/25 18:00 01/22/25 18:01 DC Pantoprazole Sodium (PROTonix 40MG INJ) 40 mg ONCE ONCE IVP 01/22/25 18:00 01/22/25 18:01 DC Sodium Chloride 1,000 ml @ 0 mls/hr ONCE ONCE IV 01/22/25 18:00 01/22/25 18:01 DC Vital Signs Date Time Temp Pulse Resp B/P (MAP) Pulse Ox O2 Delivery O2 Flow Rate FiO2 01/22/25 16:44 98.8 80 16 152/75 98 Room Air* 0 21 01/22/25 16:30 98.8 70 16 152/75 98 Room Air 0 Medical Decision Making MDM The patient is a 54-year-old female with a history of gastritis, , cholecystectomy who presents to the emergency department with complaints of epigastric abdominal pain and chest pain onset today around 1:30 p.m.. Patient reports burning sensation. In his associated with nausea nonbloody vomiting. Denies any fevers. Denies any upper respiratory symptoms. Differential diagnosis: Gastritis, gastroenteritis, ACS, pneumonia, electrolyte imbalance, pancreatitis Patient left AMA DX & DISP Disposition: AMA Departure Condition: Stable Referrals: VALENTINA SELF Jr., MD (PCP) I have reviewed the case, and I agree with, Diagnosis and Plan VERÓNICA SUH SALES VICE PRESIDENT Jan 23, 2025 00:17
--- NOTE | 2025-01-23 05:34 | EKG ---
[facility] Test Date: 2025-01-22 Test Time: 16:31:35 Pat Name: BUBBA CAMPOVERDE Department: ED Room: Gender: F [address]: [id number] : 1970 Requested By: BIB KAPOOR Order Number: [id number] Reading MD: Miller Lance Measurements Intervals [place] Rate: 80 P: 32 KS: 148 QRS: 54 QRSD: 82 T: 28 QT: 349 QTc: 401 Interpretive Statements Sinus rhythm Low voltage, precordial leads Compared to ECG 06/26/2024 01:23:06 No significant changes Electronically Signed On 01-24-2025 17:29:21 CDT by Miller Lance Please click the below link to view image of tracing.
== END 2025-01-22 18:40 | disposition left against medical advice (07) ==
LOC: EDH 16:28
DX: R10.13 Epigastric pain (principal); R07.89 Other chest pain; Z88.0 Allergy status to penicillin; Z88.5 Allergy status to narcotic agent
CPT/HCPCS: 36415; 71045; 80048; 80076; 83690; 83880; 84484; 85025; 93005; 99285

== ENCOUNTER → 2025-02-06 | Outpatient (CLI) | payer OTHER ==
--- NOTE | 2025-02-06 10:53 | HMCIMG ---
DOUBLE CONTRAST UPPER GI SERIES: Finding: The study was performed using provocative maneuvers After swallowing effervescent crystal and thick barium, there is no definite intrinsic or extrinsic lesion seen in the esophagus. There is a small hiatal hernia with esophageal reflux and grade 1 The stomach is normal in size, shape, and configuration. The rugal folds appear to be normal. The duodenal bulb, duodenal sweep, and upper jejunum appear to be normal. There are surgical clips in the right upper quadrant from prior cholecystectomy. Fluoroscopy time: 0.7 minutes IMPRESSION: Small hiatal hernia with grade 1 esophageal reflux Otherwise the remaining upper GI series appears to be normal..
== END | disposition home or self-care (01) ==
LOC: RAH 08:54
PROVIDERS: ATTEND Internal Medicine Gastroenterology
DX: K21.00 Gastro-esophageal reflux disease with esophagitis, without bleeding (principal); R13.10 Dysphagia, unspecified; K44.9 Diaphragmatic hernia without obstruction or gangrene; Z90.49 Acquired absence of other specified parts of digestive tract
CPT/HCPCS: 74240

== ENCOUNTER → 2025-02-13 | Outpatient (CLI) | payer OTHER ==
[2025-02-13 10:26] LABS: IMMATURE GRANULOCYTE ABSOLUTE 0.02 K/uL (0-1); NUCLEATED RED BLOOD CELLS 0.0 % (0.0-0.19); PLATELET COUNT (AUTO) 265 K/uL (130-400); RED BLOOD CELL COUNT(AUTO) 4.33 MIL/uL (4.00-5.50); RED CELL DISTRIBUTION WIDTH 11.7 % (11.0-15.5); WHITE BLOOD COUNT (AUTO) 5.8 K/uL (4.8-10.8)
[2025-02-13 10:35] LABS: APPEARANCE,URINE CLEAR (CLEAR); GLUCOSE, URINE (UA) NEGATIVE (NEGATIVE); LEUKOCYTE ESTERASE ,URINE 500 Leu/uL (NEGATIVE); NITRATE,URINE NEGATIVE (NEGATIVE); OCCULT BLOOD,URINE NEGATIVE (NEGATIVE)
[2025-02-13 10:37] LABS: ADD UA MICROSCOPIC YES
[2025-02-13 10:45] LABS: NON-SQUAMOUS EPITHELIAL CELL 2 /HPF (0-2); SQUAMOUS EPITHELIAL CELL,UR FEW /HPF (0-2)
[2025-02-13 10:48] LABS: ASPARTATE AMINOTRANSFERASE 22.0 U/L (10-37); CREATININE 0.6 mg/dL (0.5-1.0); GLOMERULAR FILTR. RATE CALC 106.0 mL/min (>90); GLUCOSE,RANDOM 89.0 mg/dL (70-105); LDL DIRECT 93.0 mg/dL (0-99); SODIUM SERUM 138.0 mmol/L (136-145); TOTAL PROTEIN, SERUM 7.5 g/dL (6.0-8.3); UREA NITROGEN, BLOOD 14.0 mg/dL (7-18)
== END | disposition home or self-care (01) ==
LOC: LAB 09:18
PROVIDERS: ATTEND Family Medicine
DX: Z12.11 Encounter for screening for malignant neoplasm of colon (principal); I10 Essential (primary) hypertension; E55.9 Vitamin D deficiency, unspecified; K21.9 Gastro-esophageal reflux disease without esophagitis; Z00.00 Encounter for general adult medical examination without abnormal findings; Z79.899 Other long term (current) drug therapy
CPT/HCPCS: 36415; 80053; 80061; 81001; 82043; 82270; 82306; 82570; 84443; 85025; 87086

== ENCOUNTER 2025-02-27 07:25 | Day surgery (SDC) | payer OTHER ==
[2025-02-27] VITALS (12 sets, daily range): BP systolic 124–136; BP diastolic 70–84; PULSE 64–81; RESP 15–18; TEMP 96.9–98.8
[~2025-02-27] VITALS: Ht 149.9 cm; Wt 81.6 kg
[~2025-02-27 07:25] MED LIST changes: -DIPH50LI PO; +GABA-529 PO; -KETO10TA2 PO; -MELA1TAB73 PO; +METO-408 PO; +TEMA15CA PO
[2025-02-27] MEDS: 0.9%NACL 1000ML 1,000 ML IV ONE (08:39)
== END 2025-02-27 10:45 | disposition home or self-care (01) ==
LOC: ENDO 07:25 → DAH 07:25 → ENDO 10:45
PROVIDERS: ATTEND Internal Medicine Gastroenterology
DX: R13.10 Dysphagia, unspecified (principal); K31.89 Other diseases of stomach and duodenum; K44.9 Diaphragmatic hernia without obstruction or gangrene; K21.00 Gastro-esophageal reflux disease with esophagitis, without bleeding; K22.2 Esophageal obstruction; Q39.6 Congenital diverticulum of esophagus; K29.70 Gastritis, unspecified, without bleeding; K59.04 Chronic idiopathic constipation; K57.30 Diverticulosis of large intestine without perforation or abscess without bleeding; Z88.0 Allergy status to penicillin; Z88.5 Allergy status to narcotic agent; E03.9 Hypothyroidism, unspecified; Z98.890 Other specified postprocedural states; Z79.899 Other long term (current) drug therapy
CPT/HCPCS: 43249; 43239; J7030; J2704; C1726; A4620; A4215; J3490

== ENCOUNTER → 2025-03-08 | Outpatient (CLI) | payer OTHER | END | disposition home or self-care (01) | LOC: RAH 07:47 | PROVIDERS: ATTEND Nurse Practitioner Adult Health | DX: Z12.31 Encounter for screening mammogram for malignant neoplasm of breast (principal) | CPT/HCPCS: 77067 ==

== ENCOUNTER → 2025-03-13 | Outpatient (CLI) | payer OTHER ==
[~2025-03-13] MED LIST changes: +CALC1TAB2 PO; +SUCR1TAB2 PO
[2025-03-13 10:39] LABS: IMMATURE GRANULOCYTE ABSOLUTE 0.02 K/uL (0-1); NUCLEATED RED BLOOD CELLS 0.0 % (0.0-0.19); PLATELET COUNT (AUTO) 293 K/uL (130-400); RED BLOOD CELL COUNT(AUTO) 4.26 MIL/uL (4.00-5.50); RED CELL DISTRIBUTION WIDTH 11.7 % (11.0-15.5); WHITE BLOOD COUNT (AUTO) 6.6 K/uL (4.8-10.8)
[2025-03-13 10:53] LABS: ASPARTATE AMINOTRANSFERASE 19.0 U/L (10-37); CREATININE 0.6 mg/dL (0.5-1.0); GLOMERULAR FILTR. RATE CALC 105.0 mL/min (>90); GLUCOSE,RANDOM 90.0 mg/dL (70-105); SODIUM SERUM 141.0 mmol/L (136-145); TOTAL PROTEIN, SERUM 7.5 g/dL (6.0-8.3); UREA NITROGEN, BLOOD 17.0 mg/dL (7-18)
[2025-03-13 11:03] LABS: INR 0.94 (0.85-1.15)
== END | disposition home or self-care (01) ==
LOC: LAB 09:51
PROVIDERS: ATTEND Internal Medicine Gastroenterology
DX: K76.0 Fatty (change of) liver, not elsewhere classified (principal)
CPT/HCPCS: 36415; 80053; 85025; 85610

== ENCOUNTER 2025-03-18 07:35 | Day surgery (SDC) | payer OTHER ==
[2025-03-18] VITALS (12 sets, daily range): BP systolic 101–135; BP diastolic 71–79; PULSE 82–99; RESP 12–16; TEMP 97.3–97.6
[~2025-03-18] VITALS: Ht 149.9 cm; Wt 83.5 kg
[~2025-03-18 07:35] MED LIST changes: +0.9%NACL 1000ML 1,000 ML IV ONE; -FLUT15.845 NS
--- NOTE | 2025-03-18 11:44 | NUR ---
Full and complete discharge instructions given to Patient and Family both verbally and in writing. Explained GI procedure precautions and follow up. All questions answered. PIV removed with catheter tip intact. Family at bedside appearing supportive. W/C to POV with Family to home
== END 2025-03-18 11:40 | disposition home or self-care (01) ==
LOC: DAH 07:35
PROVIDERS: ATTEND Internal Medicine Gastroenterology
DX: R14.0 Abdominal distension (gaseous) (principal); K62.1 Rectal polyp; K22.2 Esophageal obstruction; K29.60 Other gastritis without bleeding; K44.9 Diaphragmatic hernia without obstruction or gangrene; K21.9 Gastro-esophageal reflux disease without esophagitis; I10 Essential (primary) hypertension; E03.9 Hypothyroidism, unspecified; E66.01 Morbid (severe) obesity due to excess calories; K76.0 Fatty (change of) liver, not elsewhere classified; K57.30 Diverticulosis of large intestine without perforation or abscess without bleeding; Z88.0 Allergy status to penicillin; Z88.5 Allergy status to narcotic agent; Z79.899 Other long term (current) drug therapy
CPT/HCPCS: 43249; 43239; 45380; J7030; J2704; C1726; A4620; A4215; J3490

== ENCOUNTER → 2025-03-22 | Outpatient (CLI) | payer OTHER ==
[~2025-03-22] MED LIST changes: -0.9%NACL 1000ML 1,000 ML IV ONE
--- NOTE | 2025-03-27 23:27 | HMCIMG ---
EXAM: Nuclear Medicine Gastric Emptying Scan. INDICATION: Dysphagia. REFERENCE EXAMINATION: None. TECHNIQUE: 2.1 mCi of Tc99m sulfur colloid with egg whites, 2 slices of bread/jam, 4 ounces of water. FINDINGS: Transit of radiopharmaceutical is seen from the stomach into the small bowel. 50% gastric emptying achieved in 70 minutes. IMPRESSION: Scintigraphic findings suggest normal gastric emptying. /[place]
== END | disposition home or self-care (01) ==
LOC: RAH 06:30
PROVIDERS: ATTEND Surgery
DX: K44.9 Diaphragmatic hernia without obstruction or gangrene (principal); E66.01 Morbid (severe) obesity due to excess calories; R13.10 Dysphagia, unspecified
CPT/HCPCS: 78264; A9541

== ENCOUNTER 2025-04-26 15:12 | Emergency (ER) | payer OTHER ==
[~2025-04-26] VITALS: Ht 149.9 cm; Wt 76.7 kg
[2025-04-26 15:20] VITALS: BP 150/70; PULSE 93; RESP 20; TEMP 98.5; O2SAT 99
--- NOTE | 2025-04-26 15:23 | ERN ---
ED Note History of Present Illness Stated Complaint: RT ARM PAIN Chief Complaint: Upper Extremity Pain/Injury Time Seen by MD: 15:15 Dictation: PATIENT IS A 55-YEAR-OLD FEMALE COMING IN TODAY WITH SEVERE RIGHT ANTEROLATERAL PAIN TO HIS SHOULDER ONSET WAS YESTERDAY. SHE STATES SHE HAS NOT HAD ANY TRAUMA OR SHE WORKS AT [employer] [place] AND WAS NOT HAVING ANY PAIN UNTIL SHE WENT HOME THINKS IT MIGHT HAVE BEEN WHEN SHE PICKED UP A BAG. STATES SHE ALREADY IS PENDING SURGERY WITH DR. JEANNE SARAVIA TO HER LEFT SHOULDER FOR CALCIFICATIONS IN THE JOINT SHE HAS NOT TAKEN ANYTHING TODAY PRIOR TO ARRIVAL FOR PAIN. HAS ALLERGIES TO MORPHINE. Allergies: Coded Allergies: No Known Drug Allergies (Verified Allergy, Unknown, 04/26/22) Penicillins (Unverified Allergy, Unknown, 01/22/25) morphine (Unverified Allergy, Unknown, 08/19/22) pork derived (porcine) (Unverified Allergy, Unknown, 09/27/23) Home Meds Reported Medications Sucralfate (Sucralfate) 1 Gram Tablet, 1 GM PO DAILY, TAB 03/15/25 Calcium Carbonate/Vitamin D3 (Caltrate 600 + D Tablet) 600 Mg Calcium-20 Mcg (800 Unit) Tablet, 1 TAB PO DAILY for 30 Days, #30 TAB 0 Refills 03/15/25 Cyclobenzaprine HCl (Flexeril) 10 Mg Tab, 1 TAB PO HS for muscle spasms for 30 Days, #30 TAB 0 Refills 03/15/25 Temazepam (Temazepam) 15 Mg Capsule, 1 CAP PO HSPRN PRN for sleep for 30 Days, #30 CAP 0 Refills 02/26/25 Gabapentin (Gabapentin) 100 Mg Capsule, 1 CAP PO AM for 30 Days, #90 CAP 0 Refills 02/26/25 Metoprolol Succinate (Metoprolol Succinate) 25 Mg Tab.er.24h, 1 TAB PO DAILY for 30 Days, #30 TAB 0 Refills 02/26/25 Omeprazole (Omeprazole) 40 Mg Capsule.dr, 40 MG PO AM, CAP 09/27/23 Ibuprofen (Ibuprofen 800 mg Tab) 800 Mg Tab, 800 MG PO Q8H PRN for PAIN, TAB 09/27/23 Past Medical History Past Medical History: No Pertinent History Surgical History: None Social History: Negative, Lives with family History: Not Applicable RN Note Reviewed/Agreed w/PFSH: Yes Review of System Dictation CONSTITUTIONAL: NEGATIVE EXCEPT FOR HPI HEAD/FACE: NEGATIVE EXCEPT FOR HPI EENT: NEGATIVE EXCEPT FOR HPI RESPIRATORY: NEGATIVE EXCEPT FOR HPI GASTROINTESTINAL/ABDOMINAL: NEGATIVE EXCEPT FOR HPI GENITOURINARY: NEGATIVE EXCEPT FOR HPI MUSCULOSKELETAL: NEGATIVE EXCEPT FOR HPI RIGHT ANTEROLATERAL TENDERNESS WITH PALPATION INTEGUMENTARY: NEGATIVE EXCEPT FOR HPI NEUROLOGICAL/PSYCH: NEGATIVE EXCEPT FOR HPI HEMATOLOGIC/LYMPHATIC: NEGATIVE EXCEPT FOR HPI ALL SYSTEMS NEGATIVE, EXCEPT NOTED ABOVE. 13 POINT REVIEW OF SYSTEMS ASSESSED AND ALL NEGATIVE EXCEPT FOR ABOVE. Initial Vital Sign VS Vital Signs Date Time Temp Pulse Resp B/P (MAP) Pulse Ox O2 Delivery O2 Flow Rate FiO2 04/26/25 15:13 98.4 93 20 150/70 99 Room Air 04/26/25 15:20 0 21 Physical Exam Dictation VITAL SIGNS REVIEWED GENERAL APPEARANCE: ALERT, ORIENTED X 3, SEVERE ACUTE DISTRESS, WELL DEVELOPED, NOURISHED. HEAD AND FACE: NON-TRAUMATIC. EYES: PERRL, PINK CONJUNCTIVAS, EYELID NO TRAUMA, ANTERIOR CHAMBER WITH ARCUS SENILIS. EARS: PINNAS INTACT AND NO SIGNS OF TRAUMA OR ERYTHEMA EAR CANALS CLEAR AND NO DISCHARGE TM NO ERYTHEMA NOSE: NO DISCHARGE, NO BLEEDING. OROPHARYNX: MOUTH NORMAL, TONGUE PINK, PHARYNX CLEAR,NO ERYTHEMA, TONSILS NO EXUDATES, NO ABSCESSES NOTED, MUCOUS MEMBRANE MOIST NECK: SUPPLE, NON-TENDER, NO THYROMEGALY, NO MASSES, NO JVD, NO BRUITS BREAST:DEFERRED CHEST:NO TENDERNESS, NO CREPITUS, NO PARADOXICAL MOVEMENT, NO RETRACTIONS LUNGS:CLEAR, WELL-VENTILATED, SYMMETRIC, NO RALES, NO WHEEZING, NO RHONCHI, NO STRIDOR, GOOD BREATH SOUNDS BILATERALLY HEART: REGULAR RATE, REGULAR RHYTHM, NO MURMUR, NO GALLOPS VASCULAR: NO PERIPHERAL EDEMA, ABDOMEN: SOFT, POSITIVE BOWEL SOUNDS, NONDISTENDED, NO GUARDING, NONTENDER, NO REBOUND, NO MASSES NO HEPATOMEGALY, NO SPLENOMEGALY, NO KENNEDY'S SIGN, NO HERNIAS. RECTAL: DEFERRED GENITAL: DEFERRED NEUROLOGICAL: NORMAL SPEECH, MOTOR FUNCTION INTACT, SENSORY FUNCTION INTACT MUSCULOSKELETAL: NECK NONTENDER, FULL RANGE OF MOTION, BACK NONTENDER, FULL RANGE OF MOTION, EXTREMITIES: DECREASED RANGE OF MOTION TO RIGHT UPPER EXTREMITY SECONDARY TO PAIN. PATIENT HAS A EXQUISITE TENDERNESS TO HER RIGHT ANTEROLATERAL SHOULDER. NO ANTERIOR FULLNESS DISTAL NEUROVASCULAR CMS INTACT SKIN: COLOR PINK, DRY, NO TURGOR, NO RASH, NO LACERATIONS, NO ABRASIONS, NO CONTUSIONS. LYMPHATIC: DEFERRED Results (Laboratory/Radiology) Laboratory/Radiology 1605/RIGHT SHOULDER X-RAY DEMONSTRATES DEGENERATIVE CHANGES WITH CALCIFICATION SEEN IN THE JOINT. ACUTE CHANGES FROM HER LAST X-RAY SEPTEMBER 2024 Labs Reviewed?: Yes ED Course ED Course Orders Procedure Category Date Status Time Dexamethasone 4mg/Ml PHA 04/26/25 Complete 1ml Vial (Dexametha 15:30 Ketorolac 60mg/2ml PHA 04/26/25 Complete (Toradol 60mg/2ml) 15:30 Shoulder Comp 2+Vws Rt RAD 04/26/25 Taken 15:18 Sling LUCRECIA 04/26/25 Verified 16:05 Current Medications Medications (Trade) Dose Ordered Sig/Keyonna Route PRN Reason Start Time Stop Time Status Last Admin Dose Admin Dexamethasone Sodium Phosphate (dexaMETHasone 4MG/ML 1ML VIAL) 8 mg ONCE ONCE IM 04/26/25 15:30 04/26/25 15:31 DC 04/26/25 15:41 Ketorolac Tromethamine (toRADol 60MG/ 2ML) 60 mg ONCE ONCE IM 04/26/25 15:30 04/26/25 15:31 DC 04/26/25 15:40 Vital Signs Date Time Temp Pulse Resp B/P (MAP) Pulse Ox O2 Delivery O2 Flow Rate FiO2 04/26/25 15:20 98.4 93 20 150/70 99 Room Air* 0 21 04/26/25 15:13 98.4 93 20 150/70 99 Room Air 1605/SPOKE WITH PATIENT AND HER AT LENGTH REGARDING CLINICAL FINDINGS AND SHE REVIEWED THE FILM WITH ME. I TOLD HER IT WOULD BE READ BY THE RADIOLOGIST, THAT THERE WAS NO FRACTURE HOWEVER SHE HAS A ACUTE CALCIFICATIONS SEEN IN THE JOINT COMPARED TO THE FILM FROM 09/2024. SHE SAID PAIN IS IMPROVING AT THIS TIME AFTER DECADRON AND KETOROLAC PATIENT IN A SLING WITH DISTAL NEUROVASCULAR CMS INTACT TO RIGHT HAND DISCHARGED HOME TO FOLLOW UP WITH HER ORTHOPEDIC SURGEON, DR. JEANNE SARAVIA ALL QUESTIONS ANSWERED Medical Decision Making MDM MEDICAL DECISION-MAKING BASED ON EMPIRIC TREATMENT FOR ACUTE SHOULDER PAIN PAIN MARKEDLY REDUCED AFTER TREATMENT X-RAY REVIEWED THERE WAS NO FRACTURE HOWEVER THERE IS CALCIFICATIONS IN THE JOINT WITH DJD PATIENT DISCHARGED HOME WITH SLING NO WORK UNTIL CLEARED BY HER ORTHOPEDIC SURGEON NEXT WEEK. DX & DISP Disposition: Discharge Departure Impression: Primary Impression: Calcific tendonitis of right shoulder Additional Impression: DJD of right shoulder Condition: Stable Scripts Tramadol HCl/Acetaminophen (Tramadol-Acetaminophn 37.5-325) 37.5 Mg-325 Mg Tablet 2 TAB PO Q6HPRN PRN for MODERATE TO SEVERE PAIN, #15 TAB 0 Refills Prov: MIKE DAWN 04/26/25 Prednisone (Prednisone) 20 Mg Tablet 1 TAB PO AD for 6 Days, #14 TAB 0 Refills TAKE 1 TAB BY MOUTH THREE TIMES PER DAY X3 DAYS, THEN TAKE 1 TAB BY MOUTH TWICE A DAY X2 DAYS, THEN TAKE 1 TAB BY MOUTH ONCE A DAY X1 DAY. TAKE DIRECTED WITH FOOD Prov: MIKE DAWN 04/26/25 Additional Instructions: Follow-up with primary care provider in 1 to 2 days. Take medications as directed here in the emergency room. Okay to continue home medications unless otherwise discussed during your visit in the emergency room today. Return to your nearest emergency room if symptoms worsen or if there is no improvement. Call 911 if you need immediate assistance. Take Tylenol or Motrin [id number] as needed and if no contraindications are present. Increase oral hydration. A wound culture or urine culture was ordered here in the emergency room department please follow-up with primary care provider and advise them to get repeat ports from our facility. If you had any Guilherme wrap/splints that were applied here, please do not remove them until you see your primary care or specialty. Sling and no weight-bearing and no work until cleared by Orthopedics next week. Warm compresses to shoulder three to 4 times a day. Take prednisone as directed with food until gone. Take Ultracet as needed for moderate to severe pain See your orthopedic surgeon next week. Referrals: KRUPA JAMES NP (PCP) JEANNE SARAVIA MD Time of Disposition: 16:07 I have reviewed the case, and I agree with, Diagnosis and Plan MIKE DAWN Apr 26, 2025 15:23
[2025-04-26] MEDS ORDERED: TRAM-543 PO (16:11)
[2025-04-26] MEDS ORDERED: PRED20TA3 PO (16:11)
--- NOTE | 2025-04-26 16:14 | NUR ---
RT ARM SLING APPLIED, PT TOLERATED WELL
--- NOTE | 2025-04-26 16:27 | HMCIMG ---
EXAM: CR RIGHT SHOULDER, 2 VIEWS CLINICAL HISTORY: No trauma, Pain anterolateral aspect of shoulder since 04-25-2025 COMPARISON: CXR dated 01-22-2025 TECHNIQUE: 2 views of the right shoulder. FINDINGS: Bones: Generalized reduced bone density noted. No fracture or subluxation. No sclerotic or destructive changes observed. Joints: Preservation of the joint space.The articular surfaces are unremarkable. Few small osseus densities are seen projected within the joint space. Soft tissues: Small osseus densities are seen in region of supraspinatus tendon. IMPRESSION: 1. Osseus densities in region of supra spinatus tendon - Suggestive of calcific tendonitis - MRI is suggested for further evaluation. Osseus densities are seen in shoulder joint visualized in CXR dated 01-22-2025 however projectional differences make exact size comparison difficult. 2. Small osseus densities within glenohumeral joint space- may represent loose bodies. 3. Osteopenia. /[place]
== END 2025-04-26 16:15 | disposition home or self-care (01) ==
LOC: EDH 15:12
DX: M75.31 Calcific tendinitis of right shoulder (principal); M19.011 Primary osteoarthritis, right shoulder; Z79.899 Other long term (current) drug therapy; Z88.0 Allergy status to penicillin; Z88.5 Allergy status to narcotic agent
CPT/HCPCS: 99284; 73030; 96372 ×2; J1100; J1885